=== PATIENT | female | born 1990 | race Caucasian/White ===

== ENCOUNTER 2018-05-01 08:30 | Emergency (ER) | payer OTHER ==
[2018-05-01] MEDS: IBUPROFEN 800 MG TAB PO (09:10)
== END 2018-05-01 09:51 | disposition home or self-care (01) ==
LOC: FTE 08:30
DX: S89.92XA Unspecified injury of left lower leg, initial encounter (principal); X58.XXXA Exposure to other specified factors, initial encounter; Y92.9 Unspecified place or not applicable
CPT/HCPCS: 73562; 81025; 99283-25

== ENCOUNTER 2019-01-01 18:21 | Emergency (ER) | payer SELFPAY, OTHER | END 2019-01-01 23:31 | disposition left against medical advice (07) | LOC: FTE 18:21 | DX: Z53.21 Procedure and treatment not carried out due to patient leaving prior to being seen by health care provider (principal) ==